=== PATIENT | male | born 1990 | race African-American/Black ===

== ENCOUNTER 2022-07-09 17:57 | Inpatient (IN) ==
[2022-07-09 20:27] LABS: Basophils % 0.3 % (0.0-0.8); Eosinophils % 0.5 % (0.00-10.9); Hematocrit 36.4 VOL% (42.0-52.0); Hemoglobin 11.3 GM/DL (14.0-18.0); Immature Granulocytes % 0.3 %; Immature Granulocytes Absolute 0.02 #; Lymphocytes % 26.3 % (21.2-54.2); Mean Corpuscular Volume 85.8 FL (87-102); Mean Platelet Volume 10.2 FL (9.6-12.0); Monocytes # 0.7 10*3/uL (0.11-0.8); Monocytes % 9.7 % (1.7-12.7); Neutrophils % 62.9 % (38.7-73.9); Platelet Count 348 T/CUMM (130-400); Red Blood Count 4.24 MC/CUMM (3.8-5.5); Red Cell Distribution Width 14.9 % (9.3-17.3); White Blood Count 7.45 T/CUMM (4-12)
[2022-07-09] MEDS ORDERED: ALBUTEROL 2.5 MG/3 ML NEB RESP TX PRN (20:46)
[2022-07-09] MEDS ORDERED: ONDANSETRON 4 MG/2 ML VIAL IV PRN (20:47)
[2022-07-09 20:59] LABS: Albumin 3.2 G/DL (3.4-5.0); Bilirubin,Total 0.4 MG/DL (0.20-1.00); Calcium 9.1 MG/DL (8.5-10.1); Osmolality,Calculated 273.7 MOS/KG (273-304); Potassium 3.5 MMOL/L (3.5-5.1)
[2022-07-09] MEDS: ENOXAPARIN 80 MG/0.8 ML SYRINGE SUBCUT SCH (21:30)
[2022-07-09] MEDS: SODIUM CHLORIDE 0.9% 1,000 ML IV SCH (22:12)
[2022-07-10] MEDS: MORPHINE 2 MG/1 ML SYRINGE IV PRN ×4 (00:03→22:14)
[2022-07-10] MEDS: LORazepam 2 MG/1 ML VIAL IV PRN ×3 (01:25→21:45)
[2022-07-10] MEDS ORDERED: METOPROLOL TARTRATE 5 MG/5 ML VIAL IV PRN (01:28)
[2022-07-10] MEDS ORDERED: hydrALAZINE 20 MG/1 ML VIAL IV ONE (03:07)
[2022-07-10] MEDS ORDERED: MORPHINE 2 MG/1 ML SYRINGE IV ONE (03:08)
[2022-07-10 04:46] LABS: Basophils % 0.3 % (0.0-0.8); Eosinophils % 0.5 % (0.00-10.9); Hematocrit 36.1 VOL% (42.0-52.0); Hemoglobin 11.2 GM/DL (14.0-18.0); Immature Granulocytes % 0.4 %; Immature Granulocytes Absolute 0.03 #; Lymphocytes # 2.4 10*3/uL (1.4-4.0); Lymphocytes % 31.1 % (21.2-54.2); Mean Corpuscular Volume 86.6 FL (87-102); Mean Platelet Volume 9.6 FL (9.6-12.0); Monocytes # 0.8 10*3/uL (0.11-0.8); Monocytes % 10.3 % (1.7-12.7); Neutrophils % 57.4 % (38.7-73.9); Platelet Count 331 T/CUMM (130-400); Red Blood Count 4.17 MC/CUMM (3.8-5.5); Red Cell Distribution Width 14.8 % (9.3-17.3); White Blood Count 7.55 T/CUMM (4-12)
[2022-07-10 05:02] LABS: Bilirubin,Total 0.4 MG/DL (0.20-1.00); Potassium 3.4 MMOL/L (3.5-5.1); Total Protein 8.2 G/DL (6.4-8.2)
[2022-07-10] MEDS: SODIUM CHLORIDE 0.9% 1,000 ML IV SCH ×2 (07:37→19:39)
[2022-07-10] MEDS ORDERED: METOPROLOL SUCCINATE XL 25 MG TABLET PO SCH (09:00)
[2022-07-10] MEDS: PANTOPRAZOLE 40 MG TABLET PO SCH (09:14)
[2022-07-10] MEDS: lisinopriL 5 MG TABLET PO SCH (09:14)
[2022-07-10] MEDS: ENOXAPARIN 80 MG/0.8 ML SYRINGE SUBCUT SCH ×2 (09:14→20:36)
[2022-07-10] MEDS ORDERED: HYDROmorphone 1 MG/1 ML SYRINGE IV PRN (09:55)
[2022-07-10] MEDS: CYCLOBENZAPRINE 10 MG TABLET PO SCH ×2 (14:04→20:36)
[2022-07-10] MEDS: hydrALAZINE 20 MG/1 ML VIAL IV PRN (18:07)
[2022-07-10] MEDS: METOPROLOL TARTRATE 50 MG TABLET PO SCH (20:36)
[2022-07-11] MEDS: MORPHINE 2 MG/1 ML SYRINGE IV PRN ×2 (04:08→12:02)
[2022-07-11 05:54] LABS: Basophils % 0.2 % (0.0-0.8); Eosinophils % 0.2 % (0.00-10.9); Hematocrit 33.5 VOL% (42.0-52.0); Hemoglobin 10.6 GM/DL (14.0-18.0); Immature Granulocytes % 0.2 %; Immature Granulocytes Absolute 0.01 #; Lymphocytes # 1.5 10*3/uL (1.4-4.0); Lymphocytes % 24.4 % (21.2-54.2); Mean Corpuscular HGB Conc 31.6 GM/DL (32-36); Mean Corpuscular Volume 85.5 FL (87-102); Mean Platelet Volume 9.9 FL (9.6-12.0); Monocytes # 0.9 10*3/uL (0.11-0.8); Platelet Count 342 T/CUMM (130-400); Red Blood Count 3.92 MC/CUMM (3.8-5.5); Red Cell Distribution Width 14.6 % (9.3-17.3); White Blood Count 6.23 T/CUMM (4-12)
[2022-07-11 06:06] LABS: Alanine Aminotransferase < 6 U/L (16-61); Albumin 2.6 G/DL (3.4-5.0); Alkaline Phosphatase 75 U/L (45-117); Aspartate Amino Transferase 9 U/L (0-37); Blood Urea Nitrogen 6 MG/DL (7-18); Calcium 8.9 MG/DL (8.5-10.1); Carbon Dioxide 27 MMOL/L (21-32); Chloride 106 MMOL/L (98-107); Glucose 89 MG/DL (74-106); Osmolality,Calculated 273.5 MOS/KG (273-304); Potassium 3.6 MMOL/L (3.5-5.1); Sodium 139 MMOL/L (136-145); Total Protein 7.8 G/DL (6.4-8.2)
[2022-07-11] MEDS: lisinopriL 5 MG TABLET PO SCH (08:01)
[2022-07-11] MEDS: ENOXAPARIN 80 MG/0.8 ML SYRINGE SUBCUT SCH (08:01)
[2022-07-11] MEDS: PANTOPRAZOLE 40 MG TABLET PO SCH (08:01)
[2022-07-11] MEDS: METOPROLOL TARTRATE 50 MG TABLET PO SCH ×2 (08:01→20:30)
[2022-07-11] MEDS: CYCLOBENZAPRINE 10 MG TABLET PO SCH ×3 (08:01→20:30)
[2022-07-11] MEDS: hydrALAZINE 20 MG/1 ML VIAL IV PRN (10:30)
[2022-07-11] MEDS: LORazepam 2 MG/1 ML VIAL IV PRN (11:13)
[2022-07-11] MEDS: APIXABAN 5 MG TABLET PO SCH (20:30)
[2022-07-12 04:53] LABS: Basophils % 0.2 % (0.0-0.8); Eosinophils # 0.1 10*3/uL (0.0-0.87); Eosinophils % 1.6 % (0.00-10.9); Hematocrit 33.6 VOL% (42.0-52.0); Hemoglobin 10.5 GM/DL (14.0-18.0); Immature Granulocytes % 0.2 %; Immature Granulocytes Absolute 0.01 #; Lymphocytes # 1.7 10*3/uL (1.4-4.0); Lymphocytes % 30.1 % (21.2-54.2); Mean Corpuscular HGB Conc 31.3 GM/DL (32-36); Mean Corpuscular Volume 84.8 FL (87-102); Mean Platelet Volume 9.4 FL (9.6-12.0); Monocytes # 0.9 10*3/uL (0.11-0.8); Monocytes % 16.6 % (1.7-12.7); Neutrophils % 51.3 % (38.7-73.9); Platelet Count 384 T/CUMM (130-400); Red Blood Count 3.96 MC/CUMM (3.8-5.5); Red Cell Distribution Width 14.5 % (9.3-17.3); White Blood Count 5.61 T/CUMM (4-12)
[2022-07-12 05:16] LABS: Albumin 2.7 G/DL (3.4-5.0); Bilirubin,Total 0.4 MG/DL (0.20-1.00); Calcium 9.1 MG/DL (8.5-10.1); Osmolality,Calculated 270.8 MOS/KG (273-304); Potassium 3.4 MMOL/L (3.5-5.1)
[2022-07-12 05:19] LABS: Eosinophils 2 % (0-10); Hypochromia Slight; Lymphocytes 34 % (20-55); Microcytosis Slight; Platelet Estimate Adequate; Total Cells Counted 100
[2022-07-12] MEDS: APIXABAN 5 MG TABLET PO SCH ×2 (08:51→21:32)
[2022-07-12] MEDS: METOPROLOL TARTRATE 50 MG TABLET PO SCH ×2 (08:51→21:32)
[2022-07-12] MEDS: CYCLOBENZAPRINE 10 MG TABLET PO SCH ×3 (08:51→21:39)
[2022-07-12] MEDS: lisinopriL 5 MG TABLET PO SCH (08:51)
[2022-07-12] MEDS: PANTOPRAZOLE 40 MG TABLET PO SCH (08:51)
[2022-07-12] MEDS ORDERED: POTASSIUM CHLORIDE 20 MEQ TABLET PO ONE (09:39)
[2022-07-12 10:00] LABS: % Iron Saturation 5.3 % (18-50)
[2022-07-12 10:11] LABS: 25 Hydroxy Vitamin D Total 9.6 NG/ML (30-100); Folate 8.36 NG/ML (5.38-24.0)
[2022-07-12] MEDS: MORPHINE 2 MG/1 ML SYRINGE IV PRN (14:16)
[2022-07-12] MEDS: CHOLECALCIFEROL 5,000 UNIT TABLET PO SCH (16:32)
[2022-07-12] MEDS: FERRIC GLUCONATE COMPLEX 125 MG in SODIUM CHLORIDE 0.9% 100 ML IV SCH (16:32)
[2022-07-12] MEDS: SIMETHICONE CHEW 125 MG TABLET PO PRN ×2 (17:21→21:32)
[2022-07-13 05:00] LABS: Basophils % 0.2 % (0.0-0.8); Eosinophils # 0.1 10*3/uL (0.0-0.87); Eosinophils % 2.7 % (0.00-10.9); Hematocrit 36.8 VOL% (42.0-52.0); Hemoglobin 11.1 GM/DL (14.0-18.0); Immature Granulocytes % 0.2 %; Immature Granulocytes Absolute 0.01 #; Lymphocytes % 42.1 % (21.2-54.2); Mean Corpuscular HGB Conc 30.2 GM/DL (32-36); Mean Corpuscular Volume 86.8 FL (87-102); Mean Platelet Volume 9.4 FL (9.6-12.0); Monocytes # 0.8 10*3/uL (0.11-0.8); Monocytes % 16.5 % (1.7-12.7); Neutrophils % 38.3 % (38.7-73.9); Platelet Count 436 T/CUMM (130-400); Red Blood Count 4.24 MC/CUMM (3.8-5.5); Red Cell Distribution Width 14.6 % (9.3-17.3); White Blood Count 4.84 T/CUMM (4-12)
[2022-07-13 05:26] LABS: Calcium 9.3 MG/DL (8.5-10.1); Osmolality,Calculated 269.8 MOS/KG (273-304); Potassium 3.3 MMOL/L (3.5-5.1); Risk Ratio 4.5; VLDL Cholesterol 16.8 MG/DL
[2022-07-13 05:34] LABS: Eosinophils 2 % (0-10); Hypochromia Slight; Lymphocytes 38 % (20-55); Microcytosis Slight; Ovalocytes Slight; Total Cells Counted 100
[2022-07-13 05:35] LABS: Platelet Estimate Increased
[2022-07-13] MEDS: PANTOPRAZOLE 40 MG TABLET PO SCH (08:14)
[2022-07-13] MEDS: lisinopriL 5 MG TABLET PO SCH (08:15)
[2022-07-13] MEDS: METOPROLOL TARTRATE 50 MG TABLET PO SCH (08:15)
[2022-07-13] MEDS: APIXABAN 5 MG TABLET PO SCH (08:15)
[2022-07-13] MEDS: FERRIC GLUCONATE COMPLEX 125 MG in SODIUM CHLORIDE 0.9% 100 ML IV SCH (08:32)
[2022-07-13] MEDS: CYCLOBENZAPRINE 10 MG TABLET PO SCH ×2 (08:32→16:06)
[2022-07-13] MEDS: CHOLECALCIFEROL 5,000 UNIT TABLET PO SCH (08:32)
[2022-07-13] MEDS ORDERED: POTASSIUM CHLORIDE 20 MEQ TABLET PO ONE (08:52)
[2022-07-13 12:19] VITALS: BP 122/74
[2022-07-13 15:26] LABS: DRVVT Screen Ratio 1.99 ratio (<1.20); INR 1.8 (0.9-1.1)
[2022-07-15 10:06] LABS: Factor V Leiden (R506Q) Mutati Negative (Negative)
[2022-07-16 09:37] LABS: DRVVT Confirmation 0.68 ratio (<1.20); PT Mix 1:1 (Mayo Reflex) 14.7 sec (9.4 - 12.5)
== END 2022-07-13 17:18 | disposition home or self-care (01) | DRG 300 ==
LOC: N.ED 17:57 → N.EDINP 20:46 → SUATTDRO 20:46 → N.EDINP 21:58 → N.ICU 22:14 → N.TELEN 07-11 10:52
PROVIDERS: ADMIT Internal Medicine; ATTEND Internal Medicine